=== PATIENT | female | born 1965 | race Caucasian/White ===

== ENCOUNTER 2024-07-30 07:20 | Outpatient (CLI) | payer BC, SELFPAY | END 2024-07-30 07:21 | disposition home or self-care (01) | LOC: AMB 08-02 23:04 | PROVIDERS: Visit Provider Internal Medicine | DX: R10.9 Unspecified abdominal pain (principal); R53.1 Weakness | CPT/HCPCS: A0425; A0427 ==

== ENCOUNTER 2024-07-30 07:53 | Inpatient (IN) | payer BC, SELFPAY ==
[2024-07-30] VITALS (32 sets, daily range): BP systolic 148–171; BP diastolic 87–112; PULSE 79–105; RESP 18; TEMP 36.9–37.2; O2SAT 94–100; BMI 32.7; BMI 31.7
--- NOTE | 2024-07-30 08:09 | CRLHL7_ITS ---
For Patients: As a result of the Century Cures Act, medical imaging exams and procedure reports are released immediately into your electronic medical record. You may view this report before your referring provider. If you have questions, please contact your health care provider. INDICATION: Acute stroke, vision and speech abnormality. TECHNIQUE: CTA head with contrast bolus tracking, 3D angiographic rendering using maximum intensity projection (MIP) and images permanently archived. FINDINGS: There is normal opacification of the intracranial vasculature. There is no large vessel occlusion. No aneurysm is identified. IMPRESSION: Unremarkable head CTA. Please note that all CT scans at this facility use dose modulation, iterative reconstruction, and/or weight-based dosing when appropriate to reduce radiation dose to as low as reasonably achievable. Dictated by Gabriel Ely MD @ 07/30/2024 10:27:51 AM (Electronically Signed)
--- NOTE | 2024-07-30 08:09 | CRLHL7_ITS ---
For Patients: As a result of the Century Cures Act, medical imaging exams and procedure reports are released immediately into your electronic medical record. You may view this report before your referring provider. If you have questions, please contact your health care provider. INDICATION: Acute stroke, vision and speech abnormality. TECHNIQUE: CTA neck with contrast bolus tracking, 3D angiographic rendering using maximum intensity projection (MIP) and images permanently archived. FINDINGS: There is atherosclerotic plaque at the origin of the right ICA. There is no significant carotid artery stenosis or dissection. There is no significant vertebral artery stenosis or dissection. The soft tissues of the neck are within normal limits. The cervical spine is in normal alignment. Degenerative changes are incidentally noted in the cervical spine. IMPRESSION: No significant carotid or vertebral artery stenosis or dissection. Please note that all CT scans at this facility use dose modulation, iterative reconstruction, and/or weight-based dosing when appropriate to reduce radiation dose to as low as reasonably achievable. Dictated by Gabriel Ely MD @ 07/30/2024 10:29:09 AM (Electronically Signed)
--- NOTE | 2024-07-30 08:09 | CRLHL7_ITS ---
For Patients: As a result of the Century Cures Act, medical imaging exams and procedure reports are released immediately into your electronic medical record. You may view this report before your referring provider. If you have questions, please contact your health care provider. INDICATION: Vision/speech change; possible stroke. (Sic) COMPARISON: None available. TECHNIQUE: CT of the head without intravenous contrast. Please note that all CT scans at this facility use dose modulation, iterative reconstruction, and/or weight-based dosing when appropriate to reduce radiation dose to as low as reasonably achievable. FINDINGS: Intact cortical and deep clarke matter. Small focal hypodensity consistent with a chronic lacunar infarct involving the right parietal subcortical white matter (series 6; image 34). No intracranial mass or mass effect. No intracranial hemorrhage. No hydrocephalus. Intact skull base and cranial vault. Visualized orbits are without significant incidental findings. Visualized paranasal sinuses and mastoid air cells are clear. Unremarkable soft tissues. IMPRESSION: No acute infarct, intracranial hemorrhage, mass/mass effect or hydrocephalus. 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 Discussed with Dr. Mcneil at 8:33 a.m. [employer]. Please note that all CT scans at this facility use dose modulation, iterative reconstruction, and/or weight-based dosing when appropriate to reduce radiation dose to as low as reasonably achievable. Dictated by Dave Adorno MD @ 07/30/2024 8:33:31 AM (Electronically Signed)
--- NOTE | 2024-07-30 08:12 | ED.NEUROSD ---
HPI - Neuro Symptoms/Deficit General Chief Complaint: Neuro Symptoms/Altered Deficit Stated Complaint: possible stroke Time Seen by Provider: 07/30/24 08:03 History of Present Illness HPI Narrative: This 58-year-old female comes in by ambulance because of report of some visual changes and speech changes that occurred this morning. She was sleeping on the couch because of an upset stomach after recovering from my routine colonoscopy few days ago. She awoke at around 5:00 a.m. and as she was getting up to go finish sleeping back in the bed she reported some changes in her vision that included colors and her states that she could not see off to the left side so well. She also had some altered speech at that time. These symptoms lasted rather briefly and have since resolved. She did not have any unilateral weakness. She comes in for evaluation arriving here a bit more than 2-1/2 hours after these symptoms started. She does not report any headache currently. She has no residual symptoms on arrival. Related Data Home Medications ?Medication ?Instructions ?Recorded ?Confirmed No Known Home Medications 07/30/24 07/30/24 Allergies Allergy/AdvReac Type Severity Reaction Status Date / Time No Known Drug Allergies Allergy Verified 07/30/24 08:11 Review of Systems Status of ROS: Reports: 10 or more systems reviewed and unremarkable except as noted in History and below Narrative: Constitutional: No fevers, no weight gain or loss. Eyes: No discharge. Vision changes as described above which have now resolved. HENT: No congestion, no sore throat, no ear pain. Cardiovascular: No chest pain, no palpitations. Respiratory: No shortness of breath, no wheezes, no cough. Gastrointestinal: No abdominal pain, no vomiting, no diarrhea. Genitourinary: No dysuria, no hematuria. Musculoskeletal: Normal range of motion. Skin: No rashes, no pruritis. Neurological: No dizziness, weakness, sensory change. Her reports that she had altered speech for a brief time this morning. Endo/Heme/Allergies: No bruising or bleeding. No polydipsia. Pysch: no suicidality, no anxiety, no insomnia. All other systems reviewed and are negative. Exam Narrative: Exam Narrative: Constitutional: Well-developed, well-nourished, no acute distress. HEENT: Normocephalic, atraumatic. Neck: Normal range of motion. Nontender. Supple. Heart: Regular. No murmurs. Normal rate. Intact distal pulses. Lungs: Clear to auscultation. No chest discomfort. No wheezes, rhonchi, or rales. Abdomen: Normal bowel sounds. Nontender. No rebound tenderness. Genitalia: Deferred. Back: No midline tenderness. Normal range of motion. Extremities: Normal range of motion. No injury. Skin: Intact. No rash. Warm. No erythema or pallor. Neurologic: No altered sensation. No weakness. Alert and oriented. No facial asymmetry. Tongue is midline. [id number] is normal. No pronator drift. Community Development Specialist strength is equal bilaterally. Able to raise each leg from the bed. Visual thomas are intact with normal peripheral vision. Psychiatric: No suicidality. No anxiety or depression. No insomnia. Nursing notes and vitals signs are reviewed. Const: Vital Signs, click to edit/add: Vital Signs - 24 hr 07/30/24 07:57 07/30/24 08:05 07/30/24 08:30 Temperature 98.4 F Pulse Rate Pulse Rate [Pulse Oximeter] 103 H 103 H 92 Respiratory Rate 18 18 18 Blood Pressure Blood Pressure [Le ft Upper Arm] 171/112 H 171/112 H 164/97 H Pulse Oximetry 98 98 98 Oxygen Delivery Me thod Room Air Room Air Room Air 07/30/24 09:28 07/30/24 09:31 07/30/24 09:32 Temperature Pulse Rate 95 92 86 Pulse Rate [Pulse Oximeter] Respiratory Rate Blood Pressure 162/102 H 160/93 H Blood Pressure [Le ft Upper Arm] Pulse Oximetry 98 98 97 Oxygen Delivery Me thod 07/30/24 09:33 07/30/24 10:00 07/30/24 10:02 Temperature Pulse Rate 88 87 83 Pulse Rate [Pulse Oximeter] Respiratory Rate Blood Pressure 162/94 H Blood Pressure [Le ft Upper Arm] Pulse Oximetry 97 100 98 Oxygen Delivery Me thod 07/30/24 10:30 07/30/24 10:32 07/30/24 11:00 Temperature Pulse Rate 81 92 83 Pulse Rate [Pulse Oximeter] Respiratory Rate Blood Pressure 169/96 H Blood Pressure [Le ft Upper Arm] Pulse Oximetry 98 97 97 Oxygen Delivery Me thod 07/30/24 11:02 07/30/24 11:30 07/30/24 11:32 Temperature Pulse Rate 79 86 84 Pulse Rate [Pulse Oximeter] Respiratory Rate Blood Pressure 166/97 H 168/99 H Blood Pressure [Le ft Upper Arm] Pulse Oximetry 97 97 97 Oxygen Delivery Me thod 07/30/24 12:00 07/30/24 12:02 07/30/24 12:30 Temperature Pulse Rate 79 82 82 Pulse Rate [Pulse Oximeter] Respiratory Rate Blood Pressure 164/92 H Blood Pressure [Le ft Upper Arm] Pulse Oximetry 97 97 97 Oxygen Delivery Me thod 07/30/24 12:32 07/30/24 13:00 07/30/24 13:02 Temperature Pulse Rate 83 82 84 Pulse Rate [Pulse Oximeter] Respiratory Rate Blood Pressure 169/94 H 168/89 H Blood Pressure [Le ft Upper Arm] Pulse Oximetry 96 96 96 Oxygen Delivery Me thod 07/30/24 13:03 07/30/24 13:30 07/30/24 13:32 Temperature Pulse Rate 82 92 86 Pulse Rate [Pulse Oximeter] Respiratory Rate Blood Pressure 163/87 H Blood Pressure [Le ft Upper Arm] Pulse Oximetry 96 96 96 Oxygen Delivery Me thod Course Vital Signs Vital signs: Initial Vital Signs Pulse Rate 103 H 07/30/24 07:57 Respiratory Rate 18 07/30/24 07:57 Respiratory Depth Normal 07/30/24 07:57 Blood Pressure 171/112 H 07/30/24 07:57 Blood Pressure Mean 131 H 07/30/24 07:57 Blood Pressure Position Supine 07/30/24 07:57 Pulse Oximetry 98 07/30/24 07:57 Oxygen Delivery Method Room Air 07/30/24 07:57 Vital Signs Pulse Rate 103 H 07/30/24 07:57 Respiratory Rate 18 07/30/24 07:57 Blood Pressure 171/112 H 07/30/24 07:57 Pulse Oximetry 98 07/30/24 07:57 Oxygen Delivery Method Room Air 07/30/24 07:57 Temperature 98.4 F 07/30/24 08:05 Pulse Rate 86 07/30/24 13:32 Respiratory Rate 18 07/30/24 08:30 Blood Pressure 163/87 H 07/30/24 13:32 Pulse Oximetry 96 07/30/24 13:32 Oxygen Delivery Method Room Air 07/30/24 08:30 MDM - Neuro Symptoms/Deficit MDM Narrative Medical decision making narrative: This patient comes in reporting the somewhat brief episode of visual change and speech change that occurred early this morning a bit less than 3 hours prior to arrival. A stroke code was initiated upon arrival and Dr. Mcneil became involved in the care of this patient. My initial exam showed completely normal neurologic findings with no abnormalities. The patient states that her symptoms have resolved. She had CT of the head and CT angio of head and neck which returned with negative results. Dr. Mcneil recommended MRI MRA also. These returned with no sign of stroke but there is possibility of posterior reversible encephalopathy syndrome. This is clearly related to rather high blood pressure which the patient has not head and does not currently have. Dr. Mcneil recommended observation in the hospital overnight so I spoke with the hospitalist on-call, Dr. Cuellar, who agrees to this plan. Lab Data Labs: Lab Results 07/30/24 Range/Units 08:33 WBC 17.86 H (4.50-11.00) K/uL RBC 5.30 H (4.00-5.20) m/uL Hgb 15.4 (12.0-16.0) gm/dL Hct 47.2 (33.0-51.0) % MCV 89 (80-100) fL MCH 29 (26-34) pg MCHC 33 (32-36) gm/dL RDW Coeff of Sudha 12.9 (11.5-15.5) % Plt Count 236 (140-440) K/uL Neut % (Auto) 89.5 H (42.0-72.0) % Lymph % (Auto) 4.2 L (20-44) % Clare % (Auto) 6.0 (0.0-11.0) % Eos % (Auto) 0.0 (0.0-7.0) % Baso % (Auto) 0.1 (0.0-3.0) % Neut # (Auto) 16.00 H (1.7-7.0) K/uL Lymph # (Auto) 0.80 L (0.90-2.90) K/uL Clare # (Auto) 1.10 H (0.00-0.90) K/UL Eos # (Auto) 0.00 (0.00-0.50) K/uL Baso # (Auto) 0.00 (0.00-0.30) K/uL Abs Immat Gran (auto) 0.00 (0.00-0.30) K/uL Imm/Tot Granulo (auto) 0.2 % Sodium 131 L (135-149) mmol/L Potassium 3.5 L (3.6-5.1) mmol/L Chloride 95 L (96-114) mmol/L Carbon Dioxide 24 (20-32) mmol/L Anion Gap 12 (7-15) mEq/L BUN 12 (7-30) mg/dL Creatinine 0.6 (0.5-1.5) mg/dL Estimated Creat Clear 105.61 Estimated GFR 105 ml/min Glucose 148 H (60-115) mg/dL Calcium 9.0 (8.4-10.6) mg/dL Imaging Data CT scan - head: Radiologist's impression: Unremarkable head CTA. MR Brain: Radiologist's impression: 1. Symmetric regions of FLAIR signal hyperintensity in the subcortical white matter of the bilateral parafalcine parietal and occipital cortex and posterior temporal cortex. There is no associated diffusion restriction to suggest ischemia. 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 2. No acute ischemia or hemorrhage. 3. Scattered foci of T2 prolongation in the supratentorial white matter nonspecific but could represent sequela of migraine headaches, prior inflammation, or chronic small-vessel disease. ECG Data Attestation: I personally reviewed and interpreted this ECG as follows: Interpretation: Normal sinus rhythm. Rate is 89 beats per minute. There are no ST or T-wave abnormalities. Discharge Plan Discharge Clinical Impression: Transient cerebral ischemia Patient Disposition: Admitted As Observation Condition: Improved
--- NOTE | 2024-07-30 08:27 | CRLHL7_ITS ---
For Patients: As a result of the Century Cures Act, medical imaging exams and procedure reports are released immediately into your electronic medical record. You may view this report before your referring provider. If you have questions, please contact your health care provider. Indication: speech/vision changes Technique: Noncontrast sagittal T1, axial FLAIR, T2 turbo spine echo, and diffusion weighted images. Supplemental post contrast T1 weighted axial and coronal sequences are provided after administration of 20 mL gadolinium-based IV contrast. Comparison: CT 07/30/2024 Findings: The ventricles, sulci and gyri are normal size, shape and contour for age. The midline structures are centrally located with no evidence of shift. There are no suspicious intra or extra-axial fluid collections. No evidence of restricted diffusion to suggest acute ischemia. The pituitary gland, optic chiasm, pineal gland, and cerebellar tonsils are unremarkable. There are symmetric regions of FLAIR signal hyperintensity in the subcortical white matter of the bilateral parafalcine parietal and occipital cortex and posterior temporal cortex (series 6, images 14-34), without associated diffusion restriction. There is a 5 millimeter focus of enhancement in the left posterior temporal lobe at a site of FLAIR signal hyperintensity (series 1025, image 99). No pathologic susceptibility artifacts. Few scattered punctate foci of T2 prolongation in the supratentorial white matter are nonspecific. Expected flow voids in the cavernous carotids and basilar artery. No abnormal contrast enhancement involving the brain parenchyma, meninges, calvarium or skull base. Discussed with Dr. Li at 10:04 am 07/30/2024 Impression: 1. Symmetric regions of FLAIR signal hyperintensity in the subcortical white matter of the bilateral parafalcine parietal and occipital cortex and posterior temporal cortex. There is no associated diffusion restriction to suggest ischemia. 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 2. No acute ischemia or hemorrhage. 3. Scattered foci of T2 prolongation in the supratentorial white matter nonspecific but could represent sequela of migraine headaches, prior inflammation, or chronic small-vessel disease. Dictated by Josué Nicholas MD @ 07/30/2024 10:06:38 AM (Electronically Signed)
[2024-07-30 08:47] LABS: Basophils Percent Auto 0.1 % (0.0-3.0); Hematocrit 47.2 % (33.0-51.0); Hemoglobin* 15.4 gm/dL (12.0-16.0); Immature Granulocytes Pct Auto 0.2 %; Lymphocytes Percent Auto 4.2 % (20-44); Mean Corpuscular HGB Conc 33 gm/dL (32-36); Mean Corpuscular Hemoglobin 29 pg (26-34); Mean Corpuscular Volume 89 fL (80-100); Neutrophils Percent Auto 89.5 % (42.0-72.0); Platelet Count* 236 K/uL (140-440); RDW Coefficient of Variation % 12.9 % (11.5-15.5); White Blood Count* 17.86 K/uL (4.50-11.00)
[2024-07-30 08:51] LABS: Chloride* 95 mmol/L (96-114); Sodium* 131 mmol/L (135-149)
[2024-07-30 08:52] LABS: Potassium* 3.5 mmol/L (3.6-5.1)
[2024-07-30 08:54] LABS: Anion Gap 12 mEq/L (7-15); Carbon Dioxide* 24 mmol/L (20-32); Creatinine* 0.6 mg/dL (0.5-1.5); Est. Creatinine Clearance* 105.61; Estimated Glomerular Filt Rate 105 ml/min
[2024-07-30 08:55] LABS: Blood Urea Nitrogen* 12 mg/dL (7-30); Glucose* 148 mg/dL (60-115)
[2024-07-30 09:41] LABS: Slide Review Reflex No
--- NOTE | 2024-07-30 15:27 | CRLHL7_ITS ---
For Patients: As a result of the Century Cures Act, medical imaging exams and procedure reports are released immediately into your electronic medical record. You may view this report before your referring provider. If you have questions, please contact your health care provider. Indication: ABDOMINAL PAIN AFTER COLONOSCOPY Technique: CT abdomen/pelvis with IV contrast, 70 mL Isovue 370 Comparison: None Findings: Lower thorax: Trace bibasilar atelectatic changes. Abdomen/pelvis: Multiple well-circumscribed low-density lesions seen throughout the liver, incompletely characterized on this exam, but likely benign cysts. Cholelithiasis with gallbladder wall thickening and faint pericholecystic fat stranding, concerning for acute cholecystitis. No biliary ductal dilatation. The spleen, pancreas, adrenal glands, kidneys, ureters, and bladder are unremarkable in appearance. Excreted contrast is from prior same day contrast-enhanced MRI of the brain. No suspicious pelvic masses or lesions. There is no evidence of bowel obstruction or inflammation. The appendix is within normal limits in appearance. Small volume low-density free fluid in the pelvis. No free air. No abdominopelvic lymphadenopathy no abscess. The vasculature is unremarkable. Soft tissue/musculoskeletal: Unremarkable Impression: 1. Cholelithiasis with CT findings concerning for acute cholecystitis. Recommend consultation with surgery for further management recommendations. 2. Small volume low-density free fluid in the pelvis, of uncertain etiology or clinical significance. 3. No evidence of bowel obstruction or definitive CT evidence of bowel inflammation. No free air. Please note that all CT scans at this facility use dose modulation, iterative reconstruction, and/or weight-based dosing when appropriate to reduce radiation dose to as low as reasonably achievable. Dictated by Desmond Soto MD @ 07/30/2024 4:39:40 PM (Electronically Signed)
[2024-07-30 15:46] LABS: Albumin* 4.3 g/dL (3.3-5.0)
[2024-07-30 15:49] LABS: Alanine Aminotransferase* 29 U/L (4-35); Alkaline Phosphatase* 79 U/L (40-150); Aspartate Amino Transferase* 35 U/L (12-35); Bilirubin Direct* 0.3 mg/dL (0.0-0.5); Bilirubin Total* 1.1 mg/dL (0.1-1.5); Lipase* 79 U/L (23-300); Total Protein* 7.7 g/dL (6.0-8.3)
[2024-07-30] MEDS: ACETAMINOPHEN 325 MG TABLET 650 MG PO ×2 (16:50→22:04)
--- NOTE | 2024-07-30 16:54 | CRLHL7_ITS ---
For Patients: As a result of the Century Cures Act, medical imaging exams and procedure reports are released immediately into your electronic medical record. You may view this report before your referring provider. If you have questions, please contact your health care provider. INDICATION: Cholecystitis.. TECHNIQUE: Ultrasound abdomen limited. Sonographic images of the right upper quadrant were obtained using khan-scale and color Doppler images. COMPARISON: None. FINDINGS: Liver: Normal in size and echotexture. No suspicious masses. No intrahepatic biliary dilatation. Gallbladder: Multiple shadowing gallbladder stones are identified with debris within the gallbladder. Small areas ring down artifact seen within the anterior wall. Thickened gallbladder wall is noted measuring up to 7 millimeters. Slightly irregular margins of the wall. Small amount of pericholecystic fluid.. Reported negative sonographic Adames`s sign. Common bile duct: 4 mm. Pancreas: Unremarkable. Right kidney: Normal in size. Normal echotexture and cortex. No suspicious masses, stones, or hydronephrosis. Vasculature: Proximal abdominal aorta and IVC are unremarkable. IMPRESSION: 1. Multiple gallstones with thickened gallbladder and pericholecystic fluid concerning for cholecystitis. There are also small areas of ring down artifact noted within the gallbladder wall which can be seen in the setting of small foci of gas from necrosis. Dictated by Sara Aponte MD @ 07/30/2024 7:36:41 PM (Electronically Signed)
[2024-07-30] MEDS: PIPERACILLIN/TAZOBACTAM 3.375 GM in 0.9 % SODIUM CHLORIDE Mini-bag 100 ML IVPB ×2 (17:27→23:03)
--- NOTE | 2024-07-30 17:59 | PM.IMHP1 ---
Hospitalist- H&P: HPI History of Present Illness Date Seen: 07/30/24 Chief complaint: possible stroke Narrative: Renay Celestin is a 58 year old female admitted through the emergency department with onset of visual disturbance and confusion early this morning. She reports she was not feeling well with an upset stomach over the last 3 days since her colonoscopy. She was attempting to sleep on the couch because she was feeling poorly with her abdominal pain and nausea. Early this morning she got up to go to the bathroom and on the way back from the bathroom she noted that she was seeing colored flashing lights. She was speaking to her who noted that she was having troubles talking. He reports she seemed confused. He did a neurologic assessment for stroke and did not find any lateralizing weakness. Because of the difficulty speaking he brought her to the emergency room. Since coming to the emergency room she has not had any recurrence of her neurologic symptoms. She does not currently have a headache. She is still having some abdominal pain, anorexia and nausea. She has been having gastrointestinal symptoms for the past 5 months or so. Symptoms have primarily been nausea and pain, most commonly after eating. She was seen in clinic in February and March. She was treated with omeprazole and famotidine. She was on a supplement, ashwagandha extract, that she thought could be causing problems and so she stopped taking it and reports for last couple months he has been feeling pretty good. Three days ago she had a screening colonoscopy. It was not done for evaluation of any symptoms. There were no biopsies done Before the procedure she felt fine. Immediately after the procedure she felt fine. The evening after the procedure then she had some oatmeal and then had nausea and vomiting. That persisted over the next couple days. She has had essentially nothing to eat today because of her upset stomach and her neurologic symptoms noted above. She is not aware of any fever. She has not had any bloody stools. She had a normal nonbloody bowel movement 2 days ago. She does not have hypertension. She reports she has had mildly elevated blood pressures in the clinic but she and her monitor this at home and normally her blood pressures are in the 110s over 70s. She is otherwise healthy without any chronic medical problems or chronic medications. Review of Systems Narrative: Review of systems is negative except as noted above [facility] Medical History (Updated 07/30/24 @ 18:18 by Murtaza Cuellar MD) Acute cholecystitis ?K81.0 - Acute cholecystitis (ICD-10) Posterior reversible encephalopathy syndrome ?I67.83 - Posterior reversible encephalopathy syndrome (ICD-10) Surgical History (Updated 07/30/24 @ 18:09 by Murtaza Cuellar MD) History of colonoscopy ?Z98.890 - Other specified postprocedural states (ICD-10) Family History (Updated 07/30/24 @ 18:10 by Murtaza Cuellar MD) Other Gastric ulcer Social History (Updated 07/30/24 @ 18:10 by Murtaza Cuellar MD) Narrative: She lives with her . is healthcare power of deputy prosecuting attorney. Code status is full. She does not smoke. She drinks 2-3 alcoholic beverages 2 to 3 times a week. No recreational drug use What is your current living situation?: I presently have a place to live Problems where you live: no known problems Problems where you live details: N/A In the past 12 months, utilities in danger of being shut off: no In past 12 months, lack of transportation kept you from medical appts, meetings, work, or getting things needed for daily living: no In the past 12 mos, have been you worried that your food would run out before you had money to buy more?: never true In the past 12 mos, the food you bought just didn't last and you didn't have money to buy more?: never true Highest level of school completed/degree received: Bachelor's degree Smoking Status: Never smoker How often do you have a drink containing alcohol: 2-3 times a week Alcohol type: beer and wine How many standard drinks containing alcohol do you have on a typical day: 1 or 2 AUDIT-C Alcohol total score: 3 Non-prescribed substance use: denies use Caffeine: Yes How often does anyone, including family, friends and others, physically hurt you: never How often does anyone, including family, friends and others, insult or talk down to you: never How often does anyone, including family, friends and others, threaten you with harm: never How often does anyone, including family, friends and others, scream or curse at you: never service: No Meds Home Medications and Allergies Home Medications ?Medication ?Instructions ?Recorded ?Confirmed ?Type No Known Home Medications 07/30/24 07/30/24 History Allergies Allergy/AdvReac Type Severity Reaction Status Date / Time No Known Drug Allergies Allergy Verified 07/30/24 08:11 Exam Narrative: Exam Narrative: She is alert and appears in no distress. Eyes normal. Pupils equal round reactive to light. No facial asymmetry. Extraocular movements are full. No visual field deficits. Oropharynx is normal. Neck is supple without mass or adenopathy. Respirations are clear to auscultation. Cardiovascular: S1, S2, regular rate and rhythm. No murmur gallop or rub. Abdomen: Bowel sounds active. Abdomen is soft. She has minimal epigastric tenderness and some epigastric guarding. No mass. No peritonitis. External genitalia normal. Extremities with intact pulses and sensation. She moves all 4 extremities well. Const: Vital Signs, click to edit/add: Vital Signs - 24 hr 07/30/24 07:57 07/30/24 08:05 07/30/24 08:30 Temperature 98.4 F Pulse Rate Pulse Rate [Left P ulse Oximeter] Pulse Rate [Pulse Oximeter] 103 H 103 H 92 Respiratory Rate 18 18 18 Blood Pressure Blood Pressure [Le ft Arm] Blood Pressure [Le ft Upper Arm] 171/112 H 171/112 H 164/97 H Pulse Oximetry 98 98 98 Oxygen Delivery Me thod Room Air Room Air Room Air 07/30/24 09:28 07/30/24 09:31 07/30/24 09:32 Temperature Pulse Rate 95 92 86 Pulse Rate [Left P ulse Oximeter] Pulse Rate [Pulse Oximeter] Respiratory Rate Blood Pressure 162/102 H 160/93 H Blood Pressure [Le ft Arm] Blood Pressure [Le ft Upper Arm] Pulse Oximetry 98 98 97 Oxygen Delivery Me thod 07/30/24 09:33 07/30/24 10:00 07/30/24 10:02 Temperature Pulse Rate 88 87 83 Pulse Rate [Left P ulse Oximeter] Pulse Rate [Pulse Oximeter] Respiratory Rate Blood Pressure 162/94 H Blood Pressure [Le ft Arm] Blood Pressure [Le ft Upper Arm] Pulse Oximetry 97 100 98 Oxygen Delivery Me thod 07/30/24 10:30 07/30/24 10:32 07/30/24 11:00 Temperature Pulse Rate 81 92 83 Pulse Rate [Left P ulse Oximeter] Pulse Rate [Pulse Oximeter] Respiratory Rate Blood Pressure 169/96 H Blood Pressure [Le ft Arm] Blood Pressure [Le ft Upper Arm] Pulse Oximetry 98 97 97 Oxygen Delivery Me thod 07/30/24 11:02 07/30/24 11:30 07/30/24 11:32 Temperature Pulse Rate 79 86 84 Pulse Rate [Left P ulse Oximeter] Pulse Rate [Pulse Oximeter] Respiratory Rate Blood Pressure 166/97 H 168/99 H Blood Pressure [Le ft Arm] Blood Pressure [Le ft Upper Arm] Pulse Oximetry 97 97 97 Oxygen Delivery Me thod 07/30/24 12:00 07/30/24 12:02 07/30/24 12:30 Temperature Pulse Rate 79 82 82 Pulse Rate [Left P ulse Oximeter] Pulse Rate [Pulse Oximeter] Respiratory Rate Blood Pressure 164/92 H Blood Pressure [Le ft Arm] Blood Pressure [Le ft Upper Arm] Pulse Oximetry 97 97 97 Oxygen Delivery Me thod 07/30/24 12:32 07/30/24 13:00 07/30/24 13:02 Temperature Pulse Rate 83 82 84 Pulse Rate [Left P ulse Oximeter] Pulse Rate [Pulse Oximeter] Respiratory Rate Blood Pressure 169/94 H 168/89 H Blood Pressure [Le ft Arm] Blood Pressure [Le ft Upper Arm] Pulse Oximetry 96 96 96 Oxygen Delivery Me thod 07/30/24 13:03 07/30/24 13:30 07/30/24 13:32 Temperature Pulse Rate 82 92 86 Pulse Rate [Left P ulse Oximeter] Pulse Rate [Pulse Oximeter] Respiratory Rate Blood Pressure 163/87 H Blood Pressure [Le ft Arm] Blood Pressure [Le ft Upper Arm] Pulse Oximetry 96 96 96 Oxygen Delivery Me thod 07/30/24 13:33 07/30/24 14:00 07/30/24 14:02 Temperature Pulse Rate 87 92 90 Pulse Rate [Left P ulse Oximeter] Pulse Rate [Pulse Oximeter] Respiratory Rate Blood Pressure 165/99 H Blood Pressure [Le ft Arm] Blood Pressure [Le ft Upper Arm] Pulse Oximetry 95 96 96 Oxygen Delivery Me thod 07/30/24 14:30 07/30/24 14:32 07/30/24 14:49 Temperature 98.6 F Pulse Rate 105 H 93 Pulse Rate [Left P ulse Oximeter] 94 Pulse Rate [Pulse Oximeter] Respiratory Rate 18 Blood Pressure 170/92 H Blood Pressure [Le ft Arm] 162/97 H Blood Pressure [Le ft Upper Arm] Pulse Oximetry 97 95 96 Oxygen Delivery Me thod Room Air Documenting provider has reviewed patient's vital signs: yes Hospitalist - H&P: Result Labs Labs: Short CBC 07/30/24 Range/Units 08:33 WBC 17.86 H (4.50-11.00) K/uL Hgb 15.4 (12.0-16.0) gm/dL Hct 47.2 (33.0-51.0) % Plt Count 236 (140-440) K/uL BMP 07/30/24 08:33 Sodium 131 L Potassium 3.5 L Chloride 95 L Carbon Dioxide 24 BUN 12 Creatinine 0.6 Glucose 148 H Calcium 9.0 Liver Function 07/30/24 Range/Units 08:33 Total Bilirubin 1.1 (0.1-1.5) mg/dL Direct Bilirubin 0.3 (0.0-0.5) mg/dL AST 35 (12-35) U/L ALT 29 (4-35) U/L Alkaline Phosphatase 79 (40-150) U/L Albumin 4.3 (3.3-5.0) g/dL Imaging CT scan - abdomen: Radiologist's impression: [place] [address] Diagnostic Imaging Report Findings: Lower thorax: Trace bibasilar atelectatic changes. Abdomen/pelvis: Multiple well-circumscribed low-density lesions seen throughout the liver, incompletely characterized on this exam, but likely benign cysts. Cholelithiasis with gallbladder wall thickening and faint pericholecystic fat stranding, concerning for acute cholecystitis. No biliary ductal dilatation. The spleen, pancreas, adrenal glands, kidneys, ureters, and bladder are unremarkable in appearance. Excreted contrast is from prior same day contrast-enhanced MRI of the brain. No suspicious pelvic masses or lesions. There is no evidence of bowel obstruction or inflammation. The appendix is within normal limits in appearance. Small volume low-density free fluid in the pelvis. No free air. No abdominopelvic lymphadenopathy no abscess. The vasculature is unremarkable. Soft tissue/musculoskeletal: Unremarkable Impression: 1. Cholelithiasis with CT findings concerning for acute cholecystitis. Recommend consultation with surgery for further management recommendations. 2. Small volume low-density free fluid in the pelvis, of uncertain etiology or clinical significance. 3. No evidence of bowel obstruction or definitive CT evidence of bowel inflammation. No free air. MR Brain: Radiologist's impression: Indication: speech/vision changes Technique: Noncontrast sagittal T1, axial FLAIR, T2 turbo spine echo, and diffusion weighted images. Supplemental post contrast T1 weighted axial and coronal sequences are provided after administration of 20 mL gadolinium-based IV contrast. Comparison: CT 07/30/2024 Findings: The ventricles, sulci and gyri are normal size, shape and contour for age. The midline structures are centrally located with no evidence of shift. There are no suspicious intra or extra-axial fluid collections. No evidence of restricted diffusion to suggest acute ischemia. The pituitary gland, optic chiasm, pineal gland, and cerebellar tonsils are unremarkable. There are symmetric regions of FLAIR signal hyperintensity in the subcortical white matter of the bilateral parafalcine parietal and occipital cortex and posterior temporal cortex (series 6, images 14-34), without associated diffusion restriction. There is a 5 millimeter focus of enhancement in the left posterior temporal lobe at a site of FLAIR signal hyperintensity (series 1025, image 99). No pathologic susceptibility artifacts. Few scattered punctate foci of T2 prolongation in the supratentorial white matter are nonspecific. Expected flow voids in the cavernous carotids and basilar artery. No abnormal contrast enhancement involving the brain parenchyma, meninges, calvarium or skull base. Discussed with Dr. Li at 10:04 am 07/30/2024 Impression: 1. Symmetric regions of FLAIR signal hyperintensity in the subcortical white matter of the bilateral parafalcine parietal and occipital cortex and posterior temporal cortex. There is no associated diffusion restriction to suggest ischemia. 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 2. No acute ischemia or hemorrhage. 3. Scattered foci of T2 prolongation in the supratentorial white matter nonspecific but could represent sequela of migraine headaches, prior inflammation, or chronic small-vessel disease. CTA neck: Radiologist's impression: INDICATION: Acute stroke, vision and speech abnormality. TECHNIQUE: CTA neck with contrast bolus tracking, 3D angiographic rendering using maximum intensity projection (MIP) and images permanently archived. FINDINGS: There is atherosclerotic plaque at the origin of the right ICA. There is no significant carotid artery stenosis or dissection. There is no significant vertebral artery stenosis or dissection. The soft tissues of the neck are within normal limits. The cervical spine is in normal alignment. Degenerative changes are incidentally noted in the cervical spine. IMPRESSION: No significant carotid or vertebral artery stenosis or dissection. Head CTA: Radiologist's impression: INDICATION: Acute stroke, vision and speech abnormality. TECHNIQUE: CTA head with contrast bolus tracking, 3D angiographic rendering using maximum intensity projection (MIP) and images permanently archived. FINDINGS: There is normal opacification of the intracranial vasculature. There is no large vessel occlusion. No aneurysm is identified. IMPRESSION: Unremarkable head CTA. Assessment and Plan Assessment and plan (1) Posterior reversible encephalopathy syndrome: Problem comment: MRI findings support this diagnosis. Currently with mild hypertension. Symptoms have resolved. Observe and monitor vital signs and symptoms Status: Acute (2) Acute cholecystitis: Problem comment: Cholecystitis likely explains acute and chronic gastrointestinal symptoms. Due to neurologic symptoms will initially treat medically with antibiotics. Consult surgery. Status: Acute (3) Elevated blood pressure reading: Problem comment: History of white coat hypertension but normal blood pressures at home. No treatment for hypertension as outpatient. Does not appear to need urgent treatment at this time Status: Acute Plan Admit for IV antibiotics for acute cholecystitis and monitoring of symptoms of PRES. Total Time Spent Total Time Spent: Total time spent today is 85 minutes in evaluation management, discussion with patient and about diagnosis and plan of care as well as discussion with other providers.
--- NOTE | 2024-07-30 18:32 | PC.NURSE ---
Shift Summary: patient pleasant and cooperative. Tolerating clears. Denies nausea, pain 5/10 managed with PRN medication. Independent in room, present. Neuros appear baseline, agrees stroke like symptoms have resolved. Denies headache/dizziness. Vitals stable.
[2024-07-30] MEDS: SODIUM CHLORIDE 0.9 % (FLUSH) 10 ML SYRINGE 5 ML IVF (23:03)
[2024-07-30] MEDS: MELATONIN 3 MG TABLET PO (23:03)
[2024-07-31 02:26] VITALS: BP 148/92; PULSE 83; RESP 18; TEMP 37; O2SAT 94
[2024-07-31] MEDS: ACETAMINOPHEN 325 MG TABLET 650 MG PO (03:35)
[2024-07-31] MEDS: PIPERACILLIN/TAZOBACTAM 3.375 GM in 0.9 % SODIUM CHLORIDE Mini-bag 100 ML IVPB ×4 (05:12→22:39)
--- NOTE | 2024-07-31 05:24 | PC.NURSE ---
Shift note: Pt is pleasant and cooperative to treatment and care. No neurologic deterioration or change in condition. Alert and oriented, independent in room. Pt only complaint was abdominal pain rated at 4 which responded well with Tylenol. No fever recorded. Vitally stable.
[2024-07-31] MEDS: OMEPRAZOLE 20 MG CAPSULE DR 40 MG PO (06:55)
[2024-07-31 07:46] LABS: Basophils Percent Auto 0.2 % (0.0-3.0); Eosinophils Percent Auto 0.6 % (0.0-7.0); Hematocrit 45.2 % (33.0-51.0); Hemoglobin* 15.1 gm/dL (12.0-16.0); Immature Granulocytes Pct Auto 0.2 %; Lymphocytes Percent Auto 7.4 % (20-44); Mean Corpuscular HGB Conc 33 gm/dL (32-36); Mean Corpuscular Hemoglobin 29 pg (26-34); Mean Corpuscular Volume 88 fL (80-100); Monocytes Percent Auto 8.1 % (0.0-11.0); Neutrophils Percent Auto 83.5 % (42.0-72.0); Platelet Count* 286 K/uL (140-440); RDW Coefficient of Variation % 13.2 % (11.5-15.5); Red Blood Count 5.16 m/uL (4.00-5.20); White Blood Count* 18.74 K/uL (4.50-11.00)
[2024-07-31 07:53] LABS: Slide Review Reflex No
[2024-07-31 08:02] LABS: Chloride* 98 mmol/L (96-114)
[2024-07-31 08:03] LABS: Albumin* 4.2 g/dL (3.3-5.0); Sodium* 133 mmol/L (135-149)
[2024-07-31 08:05] LABS: Creatinine* 0.7 mg/dL (0.5-1.5); Est. Creatinine Clearance* 90.53; Estimated Glomerular Filt Rate 101 ml/min
[2024-07-31 08:06] LABS: Alanine Aminotransferase* 25 U/L (4-35); Alkaline Phosphatase* 84 U/L (40-150); Anion Gap 8 mEq/L (7-15); Aspartate Amino Transferase* 24 U/L (12-35); Bilirubin Direct* 0.2 mg/dL (0.0-0.5); Bilirubin Total* 1.3 mg/dL (0.1-1.5); Blood Urea Nitrogen* 11 mg/dL (7-30); Carbon Dioxide* 27 mmol/L (20-32); Glucose* 119 mg/dL (60-115); Total Protein* 7.4 g/dL (6.0-8.3)
[2024-07-31 08:20] LABS: C Reactive Protein* 17.9 mg/dL (0.5-1.0)
[2024-07-31 08:26] LABS: Potassium* 3.4 mmol/L (3.6-5.1)
[2024-07-31 09:00] VITALS: BP 133/83; PULSE 83; RESP 18; TEMP 36.7; O2SAT 96
[2024-07-31] MEDS: SODIUM CHLORIDE 0.9 % (FLUSH) 10 ML SYRINGE 5 ML IVF ×2 (11:41→22:40)
[2024-07-31 13:40] VITALS: BP 115/71; PULSE 92; RESP 18; TEMP 37.1; O2SAT 97
[2024-07-31 15:00] VITALS: BP 108/70; PULSE 95; RESP 16; TEMP 37.3; O2SAT 95
--- NOTE | 2024-07-31 16:10 | PM.IMPN1 ---
Progress Note: A&P Assessment and plan (1) Posterior reversible encephalopathy syndrome: Problem details: MRI findings support this diagnosis. Currently with mild hypertension. Symptoms have resolved. Observe and monitor vital signs and symptoms. Neurology recommends outpatient follow-up. Status: Acute (2) Acute cholecystitis: Problem details: Cholecystitis likely explains acute and chronic gastrointestinal symptoms. Due to neurologic symptoms will initially treat medically with antibiotics. Consult surgery. Status: Acute (3) Elevated blood pressure reading: Problem details: History of white coat hypertension but normal blood pressures at home. No treatment for hypertension as outpatient. Does not appear to need urgent treatment at this time Status: Acute Plan Continue in hospital for IV antibiotics for cholecystitis as well as monitoring neurologic symptoms. Time Spent With Patient Total time spent: Total time spent today is 50 minutes in coordination of care and discussing with patient and other providers management of cholecystitis and press Subjective Date Seen: 07/31/24 Interval history: 58-year-old female admitted to the hospital with neurologic symptoms including acute confusion and seeing flashing colored lights. Subsequently had evaluation for stroke with clinical exam CT and MRI which showed no stroke but MRI showed possible PRES. Symptoms resolved prior to hospital admission and she has remained asymptomatic for neurologic signs or symptoms. She has no obvious trigger for PRES, hypertension, chemotherapy, vasculitis At the time of admission it was noted that her primary symptoms of illness over the last several months have been gastrointestinal: Postprandial nausea vomiting and pain in the epigastrium. CT of the abdomen was obtained which showed probable cholecystitis as the likely cause of these prolonged intermittent symptoms. She started on Zosyn for cholecystitis. Because of her neurologic symptoms it was felt prudent to postpone surgery for a week or two pending her clinical course. July 31: She is feeling much better today. No neurologic symptoms. No abdominal pain. She is hungry. She is tolerating clear liquids. Exam Narrative: Exam Narrative: She is alert and appears in no distress. Mood and affect are bright. Eyes normal. No facial asymmetry. Respirations are clear to auscultation. Cardiovascular: S1, S2, regular rate and rhythm. Abdomen: Bowel sounds active. Abdomen is soft without tenderness or mass. She moves all 4 extremities well. Const: Vital Signs, click to edit/add: Vital Signs - 24 hr 07/30/24 19:00 07/30/24 23:00 07/30/24 23:00 Temperature 98.9 F 98.7 F Pulse Rate [Left P ulse Oximeter] 85 83 83 Respiratory Rate 18 18 18 Blood Pressure [Le ft Arm] 148/92 H 150/90 H Pulse Oximetry 95 94 Oxygen Delivery Me thod Room Air Room Air 07/31/24 02:26 07/31/24 09:00 07/31/24 13:40 Temperature 98.6 F 98.1 F 98.7 F Pulse Rate [Left P ulse Oximeter] 83 83 92 Respiratory Rate 18 18 18 Blood Pressure [Le ft Arm] 148/92 H 133/83 115/71 Pulse Oximetry 94 96 97 Oxygen Delivery Me thod Room Air Room Air Room Air 07/31/24 15:00 Temperature 99.2 F Pulse Rate [Left P ulse Oximeter] 95 Respiratory Rate 16 Blood Pressure [Le ft Arm] 108/70 Pulse Oximetry 95 Oxygen Delivery Me thod Room Air Documenting provider has reviewed patient's vital signs: yes Labs Labs: Laboratory Results - last 24 hr 07/30/24 07/31/24 08:33 06:44 WBC 18.74 H RBC 5.16 Hgb 15.1 Hct 45.2 MCV 88 MCH 29 MCHC 33 RDW Coeff of Sudha 13.2 Plt Count 286 Neut % (Auto) 83.5 H Lymph % (Auto) 7.4 L Doddridge % (Auto) 8.1 Eos % (Auto) 0.6 Baso % (Auto) 0.2 Neut # (Auto) 15.60 H Lymph # (Auto) 1.40 [place] # (Auto) 1.50 H Eos # (Auto) 0.10 Baso # (Auto) 0.00 Abs Immat Gran (auto) 0.00 Imm/Tot Granulo (auto) 0.2 Sodium 133 L Potassium 3.4 L Chloride 98 Carbon Dioxide 27 Anion Gap 8 BUN 11 Creatinine 0.7 Estimated Creat Clear 90.53 Estimated GFR 101 Glucose 119 H Calcium 9.0 Total Bilirubin 1.3 Direct Bilirubin 0.2 AST 24 ALT 25 Alkaline Phosphatase 84 C-Reactive Protein 17.9 H Total Protein 7.4 Albumin 4.2 TSH 1.330
--- NOTE | 2024-07-31 16:20 | PC.NURSE ---
Shift Summary: Patient pleasant and cooperative. Up independently, had x1BM today which patient reported was normal. Pain managed with PRN medication. Vitals stable and WNL. New order to advance diet as tolerated, diet advanced to full liquids for dinner. Denies nausea, no emesis.
[2024-07-31 19:00] VITALS: BP 105/73; PULSE 92; RESP 16; TEMP 37.2; O2SAT 96
[2024-07-31 22:41] VITALS: BP 117/73; PULSE 81; RESP 16; TEMP 37.2; O2SAT 94
[2024-08-01 03:00] VITALS: BP 126/75; PULSE 79; RESP 16; TEMP 36.8; O2SAT 93
--- NOTE | 2024-08-01 04:52 | PC.NURSE ---
Shift note: Pt's condition has improved from yesterday. No abdominal pain reported tonight. Bowel sound active and non-tender. Afebrile, had adequate sleep. Pt tolerated full liquid diet well. No neurological symptoms recorded. Alert and oriented.
[2024-08-01] MEDS: PIPERACILLIN/TAZOBACTAM 3.375 GM in 0.9 % SODIUM CHLORIDE Mini-bag 100 ML IVPB ×2 (05:20→10:50)
[2024-08-01 06:57] LABS: Basophils Percent Auto 0.3 % (0.0-3.0); Eosinophils Percent Auto 2.3 % (0.0-7.0); Hematocrit 43.1 % (33.0-51.0); Hemoglobin* 14.1 gm/dL (12.0-16.0); Immature Granulocytes Pct Auto 0.1 %; Lymphocytes Percent Auto 13.1 % (20-44); Mean Corpuscular HGB Conc 33 gm/dL (32-36); Mean Corpuscular Hemoglobin 29 pg (26-34); Mean Corpuscular Volume 89 fL (80-100); Monocytes Percent Auto 8.8 % (0.0-11.0); Neutrophils Percent Auto 75.4 % (42.0-72.0); Platelet Count* 296 K/uL (140-440); RDW Coefficient of Variation % 13.1 % (11.5-15.5); Red Blood Count 4.86 m/uL (4.00-5.20); White Blood Count* 13.69 K/uL (4.50-11.00)
[2024-08-01 07:01] LABS: Slide Review Reflex No
[2024-08-01] MEDS: OMEPRAZOLE 20 MG CAPSULE DR 40 MG PO (07:10)
[2024-08-01 07:15] LABS: Chloride* 100 mmol/L (96-114); Potassium* 3.3 mmol/L (3.6-5.1); Sodium* 135 mmol/L (135-149)
[2024-08-01 07:18] LABS: Anion Gap 10 mEq/L (7-15); Blood Urea Nitrogen* 9 mg/dL (7-30); Carbon Dioxide* 25 mmol/L (20-32); Creatinine* 0.9 mg/dL (0.5-1.5); Est. Creatinine Clearance* 70.41; Estimated Glomerular Filt Rate 75 ml/min
[2024-08-01 07:19] LABS: Calcium* 8.8 mg/dL (8.4-10.6); Glucose* 102 mg/dL (60-115)
[2024-08-01 07:27] VITALS: BP 110/70; PULSE 80; RESP 18; TEMP 36.7; O2SAT 98
[2024-08-01 07:45] LABS: C Reactive Protein* 17.2 mg/dL (0.5-1.0)
[2024-08-01] MEDS: POTASSIUM BICARB 25 MEQ EFFERVESCENT TAB 50 MEQ PO (08:27)
[2024-08-01] MEDS: SODIUM CHLORIDE 0.9 % (FLUSH) 10 ML SYRINGE 5 ML IVF (10:50)
[2024-08-01 11:02] VITALS: BP 110/75; PULSE 84; RESP 18; TEMP 36.8; O2SAT 97
--- NOTE | 2024-08-01 13:57 | PC.NURSE ---
discharge: Patient pleasant and cooperative. Up independently. Tolerating regular diet well, denies nausea or pain. Passing gas, active bowel sounds. Discharge instructions reviewed, questions answered as needed, IV removed. Discharged @ 1341 to home.
--- NOTE | 2024-08-01 15:46 | PM.DS1 ---
DS: Providers Provider Date Seen: 08/01/24 Date of admission: 07/30/24 17:27 Primary care physician: Not a Local Provider Admitting Clinician: Maria Luisa Kan MD Attending Physician on discharge: Washington Cuellar MD Date of Discharge: 08/01/24 DS: Diagnosis Discharge Diagnosis (1) Posterior reversible encephalopathy syndrome: Status: Acute Problem details: MRI findings support this diagnosis. Currently with mild hypertension. Symptoms have resolved. Observe and monitor vital signs and symptoms. Neurology recommends outpatient follow-up in about a month (2) Acute cholecystitis: Status: Acute Problem details: Cholecystitis likely explains acute and chronic gastrointestinal symptoms. Due to neurologic symptoms will initially treat medically with antibiotics. Clinically improved. Will follow up with outpatient surgery consultation in 1 week with planned cholecystectomy as an outpatient if doing well. (3) Elevated blood pressure reading: Status: Acute Problem details: History of white coat hypertension but normal blood pressures at home. On admission her blood pressures were elevated but she has been normotensive without treatment in the hospital. DS: Summary Hospital Course Hospital Course: 58-year-old female admitted to the hospital with neurologic symptoms including acute confusion and seeing flashing colored lights. Subsequently had evaluation for stroke with clinical exam CT and MRI which showed no stroke but MRI showed possible PRES. Symptoms resolved prior to hospital admission and she has remained asymptomatic for neurologic signs or symptoms. She has no obvious trigger for PRES, hypertension, chemotherapy, vasculitis At the time of admission it was noted that her primary symptoms of illness over the last several months have been gastrointestinal: Postprandial nausea vomiting and pain in the epigastrium. CT of the abdomen was obtained which showed probable cholecystitis as the likely cause of these prolonged intermittent symptoms. She started on Zosyn for cholecystitis. Because of her neurologic symptoms it was felt prudent to postpone surgery for a week or two pending her clinical course. July 31: She is feeling much better today. No neurologic symptoms. No abdominal pain. She is hungry. She is tolerating clear liquids. 08/01/2024: She reports feeling well. No neurologic symptoms since admission. Abdominal pain has resolves and no longer having symptoms in the past 2 days. She has not tolerated advancing to a regular diet. Time Spent with Patient Time attestation: Total time spent providing and/or coordinating discharge services: 40 minutes Exam Narrative: Exam Narrative: She is alert and appears in no distress. Respirations are clear to auscultation. Cardiovascular: S1, S2, regular rhythm. Abdomen: Bowel sounds active. Abdomen is soft without tenderness or mass or guarding. Const: Vital Signs, click to edit/add: Vital Signs - 24 hr 07/31/24 19:00 07/31/24 22:41 07/31/24 22:41 Temperature 99 F 99 F Pulse Rate [Left P ulse Oximeter] 92 81 81 Respiratory Rate 16 16 16 Blood Pressure [Le ft Arm] 105/73 117/73 Pulse Oximetry 96 94 Oxygen Delivery Me thod Room Air Room Air 08/01/24 03:00 08/01/24 07:27 08/01/24 11:02 Temperature 98.2 F 98.1 F 98.3 F Pulse Rate [Left P ulse Oximeter] 79 80 84 Respiratory Rate 16 18 18 Blood Pressure [Le ft Arm] 126/75 110/70 110/75 Pulse Oximetry 93 98 97 Oxygen Delivery Me thod Room Air Room Air Room Air Documenting provider has reviewed patient's vital signs: yes DS: Data Data Completed and Pending Labs on day of discharge: Labs from last 24 hours 08/01/24 06:32 WBC 13.69 H RBC 4.86 Hgb 14.1 Hct 43.1 MCV 89 MCH 29 MCHC 33 RDW Coeff of Sudha 13.1 Plt Count 296 Neut % (Auto) 75.4 H Lymph % (Auto) 13.1 L [place] % (Auto) 8.8 Eos % (Auto) 2.3 Baso % (Auto) 0.3 Neut # (Auto) 10.30 H Lymph # (Auto) 1.80 [place] # (Auto) 1.20 H Eos # (Auto) 0.30 Baso # (Auto) 0.00 Abs Immat Gran (auto) 0.00 Imm/Tot Granulo (auto) 0.1 Sodium 135 Potassium 3.3 L Chloride 100 Carbon Dioxide 25 Anion Gap 10 BUN 9 Creatinine 0.9 Estimated Creat Clear 70.41 Estimated GFR 75 Glucose 102 Calcium 8.8 C-Reactive Protein 17.2 H Imaging MR Brain: Radiologist's impression: Indication: speech/vision changes Technique: Noncontrast sagittal T1, axial FLAIR, T2 turbo spine echo, and diffusion weighted images. Supplemental post contrast T1 weighted axial and coronal sequences are provided after administration of 20 mL gadolinium-based IV contrast. Comparison: CT 07/30/2024 Findings: The ventricles, sulci and gyri are normal size, shape and contour for age. The midline structures are centrally located with no evidence of shift. There are no suspicious intra or extra-axial fluid collections. No evidence of restricted diffusion to suggest acute ischemia. The pituitary gland, optic chiasm, pineal gland, and cerebellar tonsils are unremarkable. There are symmetric regions of FLAIR signal hyperintensity in the subcortical white matter of the bilateral parafalcine parietal and occipital cortex and posterior temporal cortex (series 6, images 14-34), without associated diffusion restriction. There is a 5 millimeter focus of enhancement in the left posterior temporal lobe at a site of FLAIR signal hyperintensity (series 1025, image 99). No pathologic susceptibility artifacts. Few scattered punctate foci of T2 prolongation in the supratentorial white matter are nonspecific. Expected flow voids in the cavernous carotids and basilar artery. No abnormal contrast enhancement involving the brain parenchyma, meninges, calvarium or skull base. Discussed with Dr. Li at 10:04 am 07/30/2024 Impression: 1. Symmetric regions of FLAIR signal hyperintensity in the subcortical white matter of the bilateral parafalcine parietal and occipital cortex and posterior temporal cortex. There is no associated diffusion restriction to suggest ischemia. 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 2. No acute ischemia or hemorrhage. 3. Scattered foci of T2 prolongation in the supratentorial white matter nonspecific but could represent sequela of migraine headaches, prior inflammation, or chronic small-vessel disease. US - abdomen: Radiologist's impression: INDICATION: Cholecystitis.. TECHNIQUE: Ultrasound abdomen limited. Sonographic images of the right upper quadrant were obtained using khan-scale and color Doppler images. COMPARISON: None. FINDINGS: Liver: Normal in size and echotexture. No suspicious masses. No intrahepatic biliary dilatation. Gallbladder: Multiple shadowing gallbladder stones are identified with debris within the gallbladder. Small areas ring down artifact seen within the anterior wall. Thickened gallbladder wall is noted measuring up to 7 millimeters. Slightly irregular margins of the wall. Small amount of pericholecystic fluid.. Reported negative sonographic Adames`s sign. Common bile duct: 4 mm. Pancreas: Unremarkable. Right kidney: Normal in size. Normal echotexture and cortex. No suspicious masses, stones, or hydronephrosis. Vasculature: Proximal abdominal aorta and IVC are unremarkable. IMPRESSION: 1. Multiple gallstones with thickened gallbladder and pericholecystic fluid concerning for cholecystitis. There are also small areas of ring down artifact noted within the gallbladder wall which can be seen in the setting of small foci of gas from necrosis. CT scan - abdomen: Radiologist's impression: Indication: ABDOMINAL PAIN AFTER COLONOSCOPY Technique: CT abdomen/pelvis with IV contrast, 70 mL Isovue 370 Comparison: None Findings: Lower thorax: Trace bibasilar atelectatic changes. Abdomen/pelvis: Multiple well-circumscribed low-density lesions seen throughout the liver, incompletely characterized on this exam, but likely benign cysts. Cholelithiasis with gallbladder wall thickening and faint pericholecystic fat stranding, concerning for acute cholecystitis. No biliary ductal dilatation. The spleen, pancreas, adrenal glands, kidneys, ureters, and bladder are unremarkable in appearance. Excreted contrast is from prior same day contrast-enhanced MRI of the brain. No suspicious pelvic masses or lesions. There is no evidence of bowel obstruction or inflammation. The appendix is within normal limits in appearance. Small volume low-density free fluid in the pelvis. No free air. No abdominopelvic lymphadenopathy no abscess. The vasculature is unremarkable. Soft tissue/musculoskeletal: Unremarkable Impression: 1. Cholelithiasis with CT findings concerning for acute cholecystitis. Recommend consultation with surgery for further management recommendations. 2. Small volume low-density free fluid in the pelvis, of uncertain etiology or clinical significance. 3. No evidence of bowel obstruction or definitive CT evidence of bowel inflammation. No free air. Please note that all CT scans at this facility use dose modulation, iterative reconstruction, and/or weight-based dosing when appropriate to reduce radiation dose to as low as reasonably achievable. Dictated by Desmond Soto MD @ 07/30/2024 4:39:40 PM ----- ADDENDUM ----- Report was received by Dr. Cuellar at 4:41 p.m. on 07/30/2024. Dictated by Desmond Soto MD @ Jul 30 2024 4:47PM (Electronically Signed) For Patients: As a result of the 21st Century Cures Act, medical imaging exams and procedure reports are released immediately into your electronic medical record. You may view this report before your referring provider. If you have questions, please contact your health care provider. Indication: ABDOMINAL PAIN AFTER COLONOSCOPY Technique: CT abdomen/pelvis with IV contrast, 70 mL Isovue 370 Comparison: None Findings: Lower thorax: Trace bibasilar atelectatic changes. Abdomen/pelvis: Multiple well-circumscribed low-density lesions seen throughout the liver, incompletely characterized on this exam, but likely benign cysts. Cholelithiasis with gallbladder wall thickening and faint pericholecystic fat stranding, concerning for acute cholecystitis. No biliary ductal dilatation. The spleen, pancreas, adrenal glands, kidneys, ureters, and bladder are unremarkable in appearance. Excreted contrast is from prior same day contrast-enhanced MRI of the brain. No suspicious pelvic masses or lesions. There is no evidence of bowel obstruction or inflammation. The appendix is within normal limits in appearance. Small volume low-density free fluid in the pelvis. No free air. No abdominopelvic lymphadenopathy no abscess. The vasculature is unremarkable. Soft tissue/musculoskeletal: Unremarkable Impression: 1. Cholelithiasis with CT findings concerning for acute cholecystitis. Recommend consultation with surgery for further management recommendations. 2. Small volume low-density free fluid in the pelvis, of uncertain etiology or clinical significance. 3. No evidence of bowel obstruction or definitive CT evidence of bowel inflammation. No free air. Discharge Plan Discharge Disposition: Home, Self-Care Date of Admission: 07/30/24 17:27 Attending Provider on Discharge: Murtaza Cuellar Primary Care Provider: Provider,Not a Local Condition: Improved Anticipated Discharge Date/Time: 08/01/24 11:29 Discharge Medications: New amoxicillin-pot clavulanate 875-125 mg tablet 1 tab PO BID Qty: 10 0RF Discharge Orders: Discharge Order (Routine); Ordered 08/01/24 Ordered By: Murtaza Cuellar Patient Education: Amoxicillin/Clavulanate Potassium (By mouth), Cholecystitis (GEN) Additional Instructions: If you have recurrence of neurologic symptoms or gastrointestinal symptoms return to the emergency room. Call Dr. Cuellar at [phone] during weekdays this week if concerns or questions Activity Level: No Restrictions Discharge Diet: Other Diet Detail: Low-fat Follow Up Appointments: Marcia Duran [Other] (Dr. Duran unavailable during desired time frame ) Ana Maria Montelongo MD [Staff Physician] - 08/10/24 1:45 pm ([facility] for follow up with Dr. Montelongo. Dr. Duran unavailable during desired time frame) Provider,Not a Local [Primary Care Provider] - Forms: [employer] Info Instructions
== END 2024-08-01 13:41 | disposition home or self-care (01) | DRG 52 ==
LOC: ED 14:09 → MEDSURG 14:35
PROVIDERS: Admitting Provider Family Medicine; Emergency Provider Emergency Medicine Emergency Medical Services; Visit Provider Family Medicine
DX: I67.83 Posterior reversible encephalopathy syndrome (principal); K80.00 Calculus of gallbladder with acute cholecystitis without obstruction; R03.0 Elevated blood-pressure reading, without diagnosis of hypertension
CPT/HCPCS: 36415; 70450; 70496; 70498; 70553; 74177; 76705; 80048; 80076; 83690; 84443; 85025; 86140; 93005; 99284; 99285; A9270; A9575; J2543; Q9967

== ENCOUNTER 2024-09-09 09:22 | Day surgery (SDC) | payer BC, SELFPAY ==
[2024-09-09] VITALS (14 sets, daily range): BP systolic 118–150; BP diastolic 67–94; PULSE 65–84; RESP 14–16; TEMP 36.7–37; O2SAT 94–100; BMI 31.9
--- NOTE | 2024-09-09 09:30 | PM.GSPRC ---
Operative Note Date of procedure: 09/09/24 Pre-op diagnosis: 1. Cholelithiasis 2. Recent acute cholecystitis managed with antibiotics Post-op diagnosis: 1. Cholelithiasis 2. Recent acute cholecystitis managed with antibiotics Type of Procedure: Laparoscopic cholecystectomy Indications: The patient is a 59-year-old female who presented to the emergency department with altered mental status back in July. This was in the setting of recent right upper quadrant pain and vomiting. She was found to have PRES. She was admitted to the hospital and was also worked up for abdominal pain. CT scan showed cholecystitis without evidence of biliary dilatation or abnormal LFTs. Because of her recent neurologic event, she was treated with antibiotics and advised to wait for cholecystectomy until least 1 month. She has now been cleared by Neurology and has agreed to proceed with cholecystectomy. She has remained asymptomatic from a gallbladder standpoint however has been eating a low-fat diet. Procedure Description: After discussing the risks and benefits of the procedure, the patient signed informed consent.? The operative site was marked and the patient was brought to the operating room and placed on the operating table in supine position.? Care was taken to pad the patient's pressure points.?? The patient was then intubated by anesthesia.?? The operative site was then prepped and draped in the usual sterile fashion.? A time-out was then performed. Entrance to the abdomen was gained via a 5 mm Visiport in the left upper quadrant. The abdomen was insufflated and briefly surveyed for signs of injury. There was none. A 10 mm umbilical port was placed as well as 2 working ports along the right costal margin, all under direct vision. The patient was then placed in reverse Trendelenburg position with the right side up. The gallbladder fundus was grasped and retracted cephalad. The gallbladder was noted to be firm and thickened. A small amount of dissection was needed to free omental adhesions from the gallbladder. The infundibulum was grasped. A combination of hook cautery and blunt dissection was used to carefully dissect out the cystic duct and artery until they could clearly be seen entering the gallbladder without any intervening structures. The tissue around the gallbladder was thickened and inflamed consistent with recent history of acute cholecystitis. The gallbladder was dissected off the cystic plate to achieve the critical view. The duct proximally appeared too large to accommodate a 5 mm clip. Dissection further down the duct was difficult because of the inflamed tissue, therefore I elected to ligate the cystic duct near the gallbladder neck using an endoloop. I began by clipping the cystic artery with 2 clips proximal 1 clip distal and dividing this with a scissor. Clips were placed on the gallbladder neck and below this, the cystic duct was transected. A small amount of sludge flowed retrograde from the duct. An 0 Vicryl and an 0 PDS endoloop were then each placed around the cystic duct stump. The gallbladder was then removed from the liver bed using cautery. The gallbladder was then placed in an Endo-Catch bag and removed from the abdomen. A small amount of bile which had spilled was suctioned from the abdomen. Hemostasis at this point appeared excellent. The umbilical port fascia was closed with 0 Vicryl using a Esvin-Sil device. The remaining ports were then removed and the abdomen desufflated. The skin was closed with absorbable subcuticular suture. Sterile dressings were applied. Instrument sponge and needle counts were correct at the end of the case. The patient was then woken and transferred to the PACU in stable condition. ? The patient tolerated the procedure well. Findings: Thickened gallbladder with gallstones and inflammation from recent cholecystitis episode. Anesthesia: GETA Surgeon: Ana Maria Montelongo MD Estimated blood loss (mL): 5 Specimen: Gallbladder Condition: stable Disposition: PACU
[2024-09-09] MEDS: SODIUM CHLORIDE 0.9 % (FLUSH) 10 ML SYRINGE IVF (10:28)
--- NOTE | 2024-09-09 11:04 | W.PM.H&PU ---
History & Physical Update History & Physical Update H&P Reviewed and patient assessed: No changes noted
[2024-09-09] MEDS: LACTATED RINGERS 1000 ML 1,000 ML 100 ML IV (11:16)
[2024-09-09] MEDS: CEFAZOLIN 2 GM INJ IVP (11:28)
--- NOTE | 2024-09-09 11:46 | W.ANESCHARGE ---
Anesthesia Charges Start Date/Time Anesthesia Start Date: 09/09/24 Anesthesia Start Time: 11:16 Stop Date/Time Anesthesia Stop Date: 09/09/24 Anesthesia Stop Time: 13:06
[2024-09-09] MEDS: BUPIVACAINE 0.25% 30 ML INJECTION (11:48)
--- NOTE | 2024-09-09 13:05 | W.ANESCHARGE ---
Anesthesia Charges Start Date/Time Anesthesia Start Date: 09/09/24 Anesthesia Start Time: 11:16 Stop Date/Time Anesthesia Stop Date: 09/09/24 Anesthesia Stop Time: 13:06
[2024-09-09] MEDS: fentaNYL 100 MCG/2 ML inj 50 MCG IVP ×2 (13:10→13:20)
[2024-09-09] MEDS: HYDROCODONE-ACETAMIN 5-325 MG 1 TAB PO (14:25)
--- NOTE | 2024-09-09 14:59 | SUR.PHASEII ---
pt tolerated toast, water and juice. supportive at bedside.
== END 2024-09-09 15:20 | disposition home or self-care (01) ==
PROVIDERS: PCP Family Medicine; Visit Provider Surgery
PROC: 0FT44ZZ Resection of Gallbladder, Percutaneous Endoscopic Approach (ICD-10-PCS; CPT 47562; principal; 2024-09-09 10:45)
DX: K80.10 Calculus of gallbladder with chronic cholecystitis without obstruction (principal)
CPT/HCPCS: 47562; 00790; 88304; A9270; J0665; J0690; J1100; J1171; J1885; J2250; J2405; J2704; J2710; J3010; J7120